=== PATIENT | female | born 1950 | race Caucasian/White ===

== ENCOUNTER → 2016-12-03 | Day surgery (SDC) | payer MEDICARE, OTHER ==
[2016-12-03 06:41] LABS: CREATININE 1.1 mg/dL (0.5-1.0); POTASSIUM 4.9 mmol/L (3.5-5.1)
== END | disposition home or self-care (01) ==
LOC: FAS 11-19 07:00
PROVIDERS: Anesthesiology
DX: Z12.11 Encounter for screening for malignant neoplasm of colon (principal); I10 Essential (primary) hypertension; Z86.010 Personal history of colon polyps; Z87.891 Personal history of nicotine dependence; Z98.41 Cataract extraction status, right eye; Z98.42 Cataract extraction status, left eye; Z98.890 Other specified postprocedural states; Z79.818 Long term (current) use of other agents affecting estrogen receptors and estrogen levels; Z79.899 Other long term (current) drug therapy
CPT/HCPCS: 36415; 80048; J2704